=== PATIENT | female | born 1960 | race Caucasian/White ===

== ENCOUNTER → 2021-09-17 | Outpatient (REF) | payer MEDICARE | LOC: M LABCFH 14:39 | PROVIDERS: ATTEND Physician Assistant | DX: Z12.4 Encounter for screening for malignant neoplasm of cervix (principal) | CPT/HCPCS: 87624; G0123 ==

== ENCOUNTER → 2024-05-07 | Outpatient (CLI) | payer MEDICARE ==
[~2024-05-07] MED LIST: ALBU17IN INH; ATIV2TAB PO; DRIS50003 PO; FISH1000 PO; FLUT1LOT; HYDR-3719 PO; IBUP80TA PO; LAMO100T80 PO; LEVO125T4 PO; LEXA1TAB2 PO; LISI2.5T9 PO; METF500T13 PO; NALO25TA PO; PAME25CA PO; PROT1TAB2 PO; RANI15TA PO; RIZA10TA64 PO; SIMV20TA22 PO; TOPA100T12 PO; TOPA50TA8 PO; TOPR100T PO; TRAM50TA2 PO; ZANA4CAP PO; multivitamins PO
== END ==
LOC: M SLEEP 20:00
PROVIDERS: ATTEND Internal Medicine Pulmonary Disease
DX: G47.33 Obstructive sleep apnea (adult) (pediatric) (principal)

== ENCOUNTER → 2024-07-13 | Outpatient (CLI) | payer MEDICARE | LOC: M SLEEP 20:00 | PROVIDERS: ATTEND Internal Medicine Pulmonary Disease | DX: G47.33 Obstructive sleep apnea (adult) (pediatric) (principal) ==

== ENCOUNTER → 2025-06-26 | Outpatient (CLI) | payer MEDICARE | LOC: M PLAIMG 11:58 | PROVIDERS: ATTEND Internal Medicine | DX: M54.9 Dorsalgia, unspecified (principal) ==

== ENCOUNTER → 2025-07-10 | Outpatient (CLI) | payer MEDICARE ==
[2025-07-10 12:41] LABS: CREATININE FOR GFR 0.59 MG/DL (0.55-1.30); GLOMERULAR FILTRATION RATE > 90.0 (>45)
== END ==
LOC: M LAB 11:39
PROVIDERS: ATTEND Internal Medicine Gastroenterology
DX: C16.3 Malignant neoplasm of pyloric antrum (principal)

== ENCOUNTER → 2025-07-13 | Outpatient (CLI) | payer MEDICARE ==
[~2025-07-13] MED LIST changes: +GASTROGRAFIN SOLUTION 30 ML As Ordered ONE; +ISOVUE-370 76% 100 ML VIAL As Ordered ONE
== END ==
LOC: M RAD 11:16
PROVIDERS: ATTEND Internal Medicine Gastroenterology
DX: C16.3 Malignant neoplasm of pyloric antrum (principal)
CPT/HCPCS: 74160; Q9963; Q9967

== ENCOUNTER → 2025-07-18 | Outpatient (REF) ==
[~2025-07-18] MED LIST changes: -GASTROGRAFIN SOLUTION 30 ML As Ordered ONE; -ISOVUE-370 76% 100 ML VIAL As Ordered ONE
== END ==
LOC: M CFLAB 12:55
DX: Z01.89 Encounter for other specified special examinations (principal)

== ENCOUNTER → 2025-07-31 | Outpatient (CLI) | payer MEDICARE | LOC: M PLAIMG 14:13 | PROVIDERS: ATTEND Registered Nurse | DX: I50.9 Heart failure, unspecified (principal); I51.81 Takotsubo syndrome; R06.02 Shortness of breath ==